=== PATIENT | female | born 1985 | race Two or more races ===

== ENCOUNTER 2021-04-03 22:49 | Emergency (ER) | payer MEDICAID ==
[~2021-04-03] VITALS: Ht 157.5 cm; Wt 72.6 kg
[2021-04-03 22:52] VITALS: BP 121/88
== END 2021-04-04 01:47 | disposition left against medical advice (07) ==
LOC: ER 22:51
DX: M25.511 Pain in right shoulder (principal); Z53.21 Procedure and treatment not carried out due to patient leaving prior to being seen by health care provider